=== PATIENT | female | born 1945 | race Caucasian/White ===

== ENCOUNTER → 2018-01-14 09:46 | Outpatient (CLI) | payer MEDICARE, SELFPAY ==
--- NOTE | 2018-01-16 07:41 | P.PFT.S_ITS ---
Pulmonary Function Test Referral & Results Date Patient Seen: 01/14/18 Requesting provider: Laura Dye Results: The spirometry demonstrates an FVC of 2.21 L which is 79% of predicted. The FEV1 was measured at 1.18 L which is 55% of predicted. The FEV1/FVC ratio was 53 which is 69% of predicted. Following the administration of bronchodilator there was a 44% improvement in FEF 25-75%. Lung volumes show an SVC of 2.21 L which is 81% of predicted. No diffusing capacity was performed The maximum voluntary ventilation was severely reduced. Interpretation: This study demonstrates moderately severe obstructive lung disease with only limited evidence of benefit following bronchodilator administration which is based on a 44% improvement in small airway flow (FEF 25- 75%) Lung volumes are minimally reduced
== END ==
PROVIDERS: Family Provider Family Medicine; PCP Family Medicine; Visit Provider Family Medicine
DX: J44.9 Chronic obstructive pulmonary disease, unspecified (principal)
CPT/HCPCS: 94010; 94060; 94729

== ENCOUNTER → 2018-01-19 10:09 | Outpatient (CLI) | payer MEDICARE, SELFPAY | PROVIDERS: Family Provider Family Medicine; PCP Family Medicine; Visit Provider Internal Medicine | DX: L89.013 Pressure ulcer of right elbow, stage 3 (principal) | CPT/HCPCS: 11042; 97607 ==

== ENCOUNTER → 2018-01-28 10:17 | Outpatient (CLI) | payer MEDICARE, SELFPAY | PROVIDERS: Family Provider Family Medicine; PCP Family Medicine; Visit Provider Internal Medicine | DX: L89.013 Pressure ulcer of right elbow, stage 3 (principal); F01.50 Vascular dementia, unspecified severity, without behavioral disturbance, psychotic disturbance, mood disturbance, and anxiety | CPT/HCPCS: 11042; 99212 ==

== ENCOUNTER → 2018-02-02 15:41 | Outpatient (CLI) | payer MEDICARE, SELFPAY | PROVIDERS: Family Provider Family Medicine; PCP Family Medicine; Visit Provider Internal Medicine | DX: L89.013 Pressure ulcer of right elbow, stage 3 (principal) | CPT/HCPCS: 11042 ==

== ENCOUNTER → 2018-02-09 10:27 | Outpatient (CLI) | payer MEDICARE, SELFPAY ==
--- NOTE | 2018-02-09 | OV.WND_ITS ---
Progress Note Details Patient Name: Gail Rosado Patient Number: [id number] PatientPatientDate: 02/09/2018 Clinician: Jaymie Romero Physician / Service Porter: Willard Munguia SUBJECTIVE Chief Complaint This information was obtained from the chart Non-healing wound to right elbow Allergies penicillin HPI This information was obtained from the patient 02/09/18. Seen by Dr. Munguia. The patient does not report pain or drainage associated with the chronic right elbow pressure ulcer since her last visit. 02/02/18. Seen by Dr. Munguia. The patient does not report pain or drainage associated with the chronic right elbow pressure ulcer since her last visit and she tolerate NPWT without difficulty. 01/28/18. Seen by Dr. Munguia. There is no report of acute issues regarding the chronic right elbow pressure ulcer over the past week and her wound vac stopped working on Friday and was removed. Also, the patient suffers from vascular dementia and relies on her family to help manage the wound vac. 01/19/18. Seen by Dr. Munguia. The patient does not report pain or drainage associated with the chronic right elbow pressure ulcer since her last visit. 01/12/18. Seen by Dr. Munguia. There is no report of acute issues regarding the chronic right elbow pressure ulcer over the past week and we'd help NPWT at the last visit at the patient's request. 01/05/18. Seen by Dr. Munguia. There is no report of acute issues regarding the chronic right elbow pressure ulcer over the past week however the patient's asking if we can defer negative pressure wound therapy due to it being cumbersome. 12/29/2017. Seen by Dr. Munguia. The patient tolerated her negative pressure wound VAC that is treating the chronic right elbow pressure ulcer and there are no reported acute issues today. Of note, the patient's suffers from frontal dementia and is not able offer history herself. 12/22/17. Seen by Dr. Munguia. The patient nor her son who is with her today report any significant changes associated with the chronic right elbow pressure ulcer since her last visit. 12/15/17. Seen by Dr. Munguia. Seen by Dr. Munguia. The patient does not report pain or drainage associated with the chronic right elbow pressure ulcer since her last visit and her daughter is accompanying her today due to the patient's advanced vascular dementia. 12/08/17. Seen by Dr. Munguia. The patient does not report pain or drainage associated with the chronic right elbow pressure ulcer since her last visit and her spouse is accompanying her today due to the patient's advanced vascular dementia. 12/01/17. Seen by Dr. Munguia. The patient does not report pain or drainage associated with the chronic right elbow pressure ulcer since her last visit and her daughter is accompanying her today due to the patient's advanced vascular dementia. 11/24/17. Seen by Dr. Munguia. The patient is a poor historian and her son is with her today and does not report any acute changes regarding the right elbow pressure ulcer since her last visit. There appears to be some lack of compliance in terms of offloading the elbow as well as home health adhering to the orders that were sent last week in terms of managing dressings. Of note, the patient suffers from vascular dementia and requires considerable assistance in regards to wound management. 11/17/17. Seen by Dr. Munguia. The patient does not report pain or drainage associated with the chronic right elbow pressure ulcer since her last visit and her daughter states they've been offloading the site as much as possible. 11/10/17. Seen by Last Javed PA-C. The patient's daughter reports that derma-saver no longer makes an elbow protector. She and the patient's son have had little success getting her to offload her pressure ulcer of the right elbow. 11/03/17. Seen by Last Javed PA-C. This patient is new to our clinic and presents with an ulcer to her right elbow that has been present for at least several weeks according to her son who is present. The patient has vascular dementia and is not a reliable historian. The son states that the patient leans on that elbow when seated, which is a behavior they do not think they can change. The patient's diet is apparently rich in protein, per the son's report though due to her dementia she is now having swallow difficulties ans she is not complying with the orders for thickened liquids. Past Medical History This information was obtained from the patient Patient has a medical history of: Breast Cancer Vascular Dementia CVA Hyperlipidemia Vaginal prolapse Chronic Obstructive Pulmonary Disease (COPD) Aspiration Raynaud's Disease Alcohol abuse Complaints and Symptoms This information was obtained from the patient Patient complains of: General Notes: I have reviewed and concur with the Review of Systems and Past Family Social History documents completed by the clinician, I have reviewed and concur with the Wound Assessment document completed by the clinician Integumentary (Hair/Skin/Nails): Open Sore Prior Wound History: Drainage Psychiatric: Memory Loss Patient denies complaints or symptoms related to: Cardiovascular (Central): Irregular heart beat Constitutional Symptoms (General Health): Chills, Fever Ear/Nose/Mouth/Throat: Hearing Loss / Aid Hematologic/Lymphatic: Bleeding / Clotting Disorders, Bleeding Tendency Neurological: Paralysis Prior Wound History: Pain Respiratory: Oxygen Use OBJECTIVE Constitutional Vital signs reviewed and noted. Frail appearing. Height/Length: 62 in (157.48 cm ), Weight: 129.4 lbs (58.82 kgs), BMI: 23.7, Temperature: 98.7 ?F (37.06 ?C), Pulse: 67 bpm , Respiratory Rate: 20 breaths/min, Blood Pressure: 116/65 mmHg, Pulse Oximetry: 96 %. Respiratory: No respiratory distress. Even respirations and without use of accessory muscles.. Integumentary (Hair, Skin) No periwound erythema, warmth, or significant drainage. No periwound rashes appreciated or noted otherwise.. Refer to appropriate clinician wound documentation for this visit; right elbow ulcer extends to subcut with base covered with pink granulation; much smaller than on previous review. Wound #1 Right Elbow is a chronic Stage 3 Pressure Injury Pressure Ulcer and has received a status of Not Healed. Subsequent wound encounter measurements are 0.2cm length x 0.4cm width x 0.2cm depth, with an area of 0.08 sq cm and a volume of 0.016 cubic cm. No tunneling has been noted. No sinus tract has been noted. No undermining has been noted. There is a scant amount of sero-sanguineous drainage noted which has no odor. The patient reports a wound pain of level 0/10. The wound margin is attached. Wound bed has No epithelialization, No eschar, Yes slough, No granulation. The periwound skin texture is normal. The periwound skin moisture is normal. The periwound skin color is normal. The temperature of the periwound skin is WNL. Periwound skin does not exhibit signs or symptoms of infection. Local Pulse is Palpable. ASSESSMENT Active Problems ICD-10 (Encounter Diagnosis) L89.013 - Pressure ulcer of right elbow, stage 3 PROCEDURES Wound #1 Wound #1 (Pressure Ulcer) is located on the right elbow. A skin/subcutaneous tissue level surgical debridement with a total area debrided of 0.08 sq cm was performed by Willard Munguia MD. Subcutaneous was removed along with devitalized tissue: slough. The following instrument(s) were used: curette. Pain control was achieved using 4% Lido. A time out was conducted prior to the start of the procedure. A minimal amount of bleeding was controlled with n/a. The procedure was tolerated well with a pain level of 0 throughout and a pain level of 0 following the procedure. Post Debridement Measurements: 0.2cm length x 0.4cm width x 0.3cm depth; with an area of 0.08 sq cm and a volume of 0.024 cubic cm; Additional Information Muscle fascia or bone removed and sent to pathology?: No PLAN Wound Orders: Wound #1 Right Elbow Anesthetic Topical Xylocaine to wound bed. - In clinic only. Cleanser Cleanse Wound: - Normal saline. May Shower. - If using cast sleeve. Dressings Primary dressing: - Bordered foam Change Dressing: - Every other day Off-Loading Keep weight off: - Right elbow. Keep floated on pillow as much as possible. May order long dermasaver arm sleeve, and can cut it if sleeve appears too large. Additional Orders: Follow-Up Appointments Return Appointment: - - One week . Other information: If you develop fever, chills, increased pain, drainage, redness or swelling please call our office. If after hours, respond to the ER. Should you experience any significant changes in your wound(s) or have any questions regarding your home care instructions please contact the wound center @ [phone]. If after hours, contact your primary care physician or go to the hospital emergency room. Scribing Attestation I attest, as the nurse, that I scribed these orders for the physician. I've reviewed the clinician's documentation and agree with the evaluation and plan as written. In addition, the patient's ulcer demonstrates evidence of non-viable devitalized tissue which will continue to benefit from sharp debridement to help promote granulation and expedite healing. Electronic Signature(s) Signed By: Date: Willard Munguia MD 02/10/2018 10:10:58 Willard Munguia MD 02/10/2018 10:10:58 Entered By: Willard Munguia on 02/09/2018 13:40:27
== END ==
PROVIDERS: Family Provider Family Medicine; PCP Family Medicine; Visit Provider Internal Medicine
DX: L89.013 Pressure ulcer of right elbow, stage 3 (principal)
CPT/HCPCS: 11042

== ENCOUNTER → 2018-02-10 10:33 | Outpatient (CLI) | payer MEDICARE, SELFPAY ==
[2018-02-10 11:29] LABS: Add Manual Diff / Slide Review NO; Basophils Percent Auto 0.3 % (0-2); Eosinophils Percent Auto 2.9 % (2-4); Hematocrit 40.7 % (36-46); Hemoglobin 13.6 g/dL (12.0-16.0); Lymphocytes Percent Auto 32.2 % (25-40); Mean Corpuscular HGB Conc 33.4 % (30-36); Mean Corpuscular Hemoglobin 30.1 PG (26-34); Mean Corpuscular Volume 90.2 fL (80-100); Monocytes Percent Auto 6.3 % (3-14); Neutrophils Absolute Auto 4400 /uL (3000-5900); Neutrophils Percent Auto 58.3 % (50-75); Platelet Count 199 X10^3/uL (150-400); Red Blood Cell Count 4.52 X10^6/uL (4.0-5.2); Red Cell Distribution Width 14.9 % (11.6-14.8); White Blood Cell Count 7.6 X10^3/uL (4.5-11.0)
[2018-02-10 11:45] LABS: Alanine Aminotransferase 51 IU/L (9-52); Albumin 4.3 g/dL (3.5-5.0); Albumin Globulin Ratio 1.3 (1.0-2.8); Alkaline Phosphatase 69 U/L (38-126); Aspartate Aminotransferase 40 IU/L (14-36); BUN Creatinine Ratio 33.3 (6-22); Bilirubin Total 0.6 mg/dL (0.2-1.3); Blood Urea Nitrogen 20 mg/dL (7-17); Calcium 9.5 mg/dL (8.4-10.2); Carbon Dioxide 30 mmol/L (22-32); Chloride 103 mmol/L (98-107); Cholesterol 156 mg/dL (140-199); Estimated Glomerular Filt Rate > 60.0 mL/min (>60); Globulin 3.4 g/dL (1.7-4.1); Glucose 100 mg/dL (80-110); HDL Cholesterol 39 mg/dL (40-60); HEMOLYSIS < 15 (0-50); LDL Cholesterol Calculated 90 mg/dL (<100); Potassium 4.4 mmol/L (3.4-5.1); Sodium 144 mmol/L (137-145); Total Protein 7.7 g/dL (6.3-8.2); Triglycerides 133 mg/dL (35-150)
[2018-02-10 12:52] LABS: Folate > 20.0 ng/mL (2.76-20.0); Vitamin B12 313 pg/mL (239-931)
== END ==
PROVIDERS: Family Provider Family Medicine; PCP Family Medicine; Visit Provider Family Medicine
DX: Z86.73 Personal history of transient ischemic attack (TIA), and cerebral infarction without residual deficits (principal); J44.9 Chronic obstructive pulmonary disease, unspecified; E78.5 Hyperlipidemia, unspecified
CPT/HCPCS: 36415; 80053; 80061; 82607; 82746; 85025

== ENCOUNTER → 2018-02-16 10:08 | Outpatient (CLI) | payer MEDICARE, SELFPAY ==
--- NOTE | 2018-02-16 | OV.WND_ITS ---
Progress Note Details Patient Name: Gail Rosado Patient Number: [id number] PatientPatientDate: 02/16/2018 Clinician: Krystle Patel Clinician Cosigner: Jaymie Romero Physician / System Designer: Willard Munguia SUBJECTIVE Chief Complaint This information was obtained from the chart Non-healing wound to right elbow Allergies penicillin HPI This information was obtained from the patient 02/16/18. Seen by Dr. Munguia. The patient does not report pain or drainage associated with the chronic right elbow pressure ulcer since her last visit 02/09/18. Seen by Dr. Munguia. The patient does not report pain or drainage associated with the chronic right elbow pressure ulcer since her last visit. 02/02/18. Seen by Dr. Munguia. The patient does not report pain or drainage associated with the chronic right elbow pressure ulcer since her last visit and she tolerate NPWT without difficulty. 01/28/18. Seen by Dr. Munguia. There is no report of acute issues regarding the chronic right elbow pressure ulcer over the past week and her wound vac stopped working on Friday and was removed. Also, the patient suffers from vascular dementia and relies on her family to help manage the wound vac. 01/19/18. Seen by Dr. Munguia. The patient does not report pain or drainage associated with the chronic right elbow pressure ulcer since her last visit. 01/12/18. Seen by Dr. Munguia. There is no report of acute issues regarding the chronic right elbow pressure ulcer over the past week and we'd help NPWT at the last visit at the patient's request. 01/05/18. Seen by Dr. Munguia. There is no report of acute issues regarding the chronic right elbow pressure ulcer over the past week however the patient's asking if we can defer negative pressure wound therapy due to it being cumbersome. 12/29/2017. Seen by Dr. Munguia. The patient tolerated her negative pressure wound VAC that is treating the chronic right elbow pressure ulcer and there are no reported acute issues today. Of note, the patient's suffers from frontal dementia and is not able offer history herself. 12/22/17. Seen by Dr. Munguia. The patient nor her son who is with her today report any significant changes associated with the chronic right elbow pressure ulcer since her last visit. 12/15/17. Seen by Dr. Munguia. Seen by Dr. Munguia. The patient does not report pain or drainage associated with the chronic right elbow pressure ulcer since her last visit and her daughter is accompanying her today due to the patient's advanced vascular dementia. 12/08/17. Seen by Dr. Munguia. The patient does not report pain or drainage associated with the chronic right elbow pressure ulcer since her last visit and her spouse is accompanying her today due to the patient's advanced vascular dementia. 12/01/17. Seen by Dr. Munguia. The patient does not report pain or drainage associated with the chronic right elbow pressure ulcer since her last visit and her daughter is accompanying her today due to the patient's advanced vascular dementia. 11/24/17. Seen by Dr. Munguia. The patient is a poor historian and her son is with her today and does not report any acute changes regarding the right elbow pressure ulcer since her last visit. There appears to be some lack of compliance in terms of offloading the elbow as well as home health adhering to the orders that were sent last week in terms of managing dressings. Of note, the patient suffers from vascular dementia and requires considerable assistance in regards to wound management. 11/17/17. Seen by Dr. Munguia. The patient does not report pain or drainage associated with the chronic right elbow pressure ulcer since her last visit and her daughter states they've been offloading the site as much as possible. 11/10/17. Seen by Last Javed PA-C. The patient's daughter reports that derma-saver no longer makes an elbow protector. She and the patient's son have had little success getting her to offload her pressure ulcer of the right elbow. 11/03/17. Seen by Last Javed PA-C. This patient is new to our clinic and presents with an ulcer to her right elbow that has been present for at least several weeks according to her son who is present. The patient has vascular dementia and is not a reliable historian. The son states that the patient leans on that elbow when seated, which is a behavior they do not think they can change. The patient's diet is apparently rich in protein, per the son's report though due to her dementia she is now having swallow difficulties ans she is not complying with the orders for thickened liquids. Past Medical History This information was obtained from the patient Patient has a medical history of: Breast Cancer Vascular Dementia CVA Hyperlipidemia Vaginal prolapse Chronic Obstructive Pulmonary Disease (COPD) Aspiration Raynaud's Disease Alcohol abuse Complaints and Symptoms This information was obtained from the patient Patient complains of: General Notes: I have reviewed and concur with the Review of Systems and Past Family Social History documents completed by the clinician, I have reviewed and concur with the Wound Assessment document completed by the clinician Integumentary (Hair/Skin/Nails): Open Sore Prior Wound History: Drainage Psychiatric: Memory Loss Patient denies complaints or symptoms related to: Cardiovascular (Central): Irregular heart beat Constitutional Symptoms (General Health): Chills, Fever Ear/Nose/Mouth/Throat: Hearing Loss / Aid Hematologic/Lymphatic: Bleeding / Clotting Disorders, Bleeding Tendency Neurological: Paralysis Prior Wound History: Pain Respiratory: Oxygen Use OBJECTIVE Constitutional Vital signs reviewed and noted. Frail appearing. Height/Length: 62 in (157.48 cm ), Weight: 128.3 lbs (58.32 kgs), BMI: 23.5, Temperature: 98.5 ?F (36.94 ?C), Pulse: 64 bpm , Respiratory Rate: 20 breaths/min, Blood Pressure: 129/74 mmHg, Pulse Oximetry: 96 %. Respiratory: No respiratory distress. Even respirations and without use of accessory muscles.. Integumentary (Hair, Skin) No periwound erythema, warmth, or significant drainage. No periwound rashes appreciated or noted otherwise.. Refer to appropriate clinician wound documentation for this visit; right elbow ulcer extends to dermis and is nearly healed. Wound #1 Right Elbow is a chronic Stage 3 Pressure Injury Pressure Ulcer and has received a status of Not Healed. Subsequent wound encounter measurements are 0.2cm length x 0.1cm width x 0.1cm depth, with an area of 0.02 sq cm and a volume of 0.002 cubic cm. No tunneling has been noted. No sinus tract has been noted. No undermining has been noted. There is a scant amount of sero-sanguineous drainage noted which has no odor. The patient reports a wound pain of level 0/10. The wound margin is attached. Wound bed has Yes epithelialization, No eschar, Yes slough, No granulation. The periwound skin texture is normal. The periwound skin moisture is normal. The periwound skin color is normal. The temperature of the periwound skin is WNL. Periwound skin does not exhibit signs or symptoms of infection. Local Pulse is Palpable. Neurological: Cranial nerves grossly intact with symmetric function normal by informal observation.. ASSESSMENT Active Problems ICD-10 (Encounter Diagnosis) L89.013 - Pressure ulcer of right elbow, stage 3 PROCEDURES Wound #1 Wound #1 (Pressure Ulcer) is located on the right elbow. A non-selective mechanical debridement with a total area debrided of 0.01 sq cm was performed by Willard Munguia MD. Non-viable tissue was removed.The procedure was tolerated well with a pain level of 0 throughout and a pain level of 0 following the procedure. Post Debridement Measurements: 0.1cm length x 0.1cm width x 0.1cm depth; with an area of 0.01 sq cm and a volume of 0.001 cubic cm; General Notes: Drainage removed. PLAN Wound Orders: Wound #1 Right Elbow Anesthetic Topical Xylocaine to wound bed. - In clinic only. Cleanser Cleanse Wound: - Normal saline. May Shower. - If using cast sleeve. Dressings Primary dressing: - Bordered foam Change Dressing: - Every other day Off-Loading Keep weight off: - Right elbow. Keep floated on pillow as much as possible. May order long dermasaver arm sleeve, and can cut it if sleeve appears too large. Additional Orders: Follow-Up Appointments Return Appointment: - - Two weeks. Other information: If you develop fever, chills, increased pain, drainage, redness or swelling please call our office. If after hours, respond to the ER. Should you experience any significant changes in your wound(s) or have any questions regarding your home care instructions please contact the wound center @ [phone]. If after hours, contact your primary care physician or go to the hospital emergency room. Scribing Attestation I attest, as the nurse, that I scribed these orders for the physician. I've reviewed the clinician's documentation and agree with the evaluation and plan as written. Electronic Signature(s) Signed By: Date: Willard Munguia MD 02/16/2018 14:41:04 Entered By: Willard Munguia on 02/16/2018 12:08:24
== END ==
PROVIDERS: Family Provider Family Medicine; PCP Family Medicine; Visit Provider Internal Medicine
DX: L89.013 Pressure ulcer of right elbow, stage 3 (principal)
CPT/HCPCS: 99212

== ENCOUNTER → 2018-02-18 11:36 | Outpatient (CLI) | payer MEDICARE, SELFPAY ==
--- NOTE | 2018-02-18 11:40 | DI.CT.S_ITS ---
PROCEDURE: CT CHEST WO CON INDICATIONS: Follow up pulmonary nodules. TECHNIQUE: Noncontrast 2.0-2.5 mm thick sections acquired from the pulmonary apices to the posterior costophrenic angles. 7 mm thick coronal and sagittal MIP reformats were then acquired. A low radiation dose technique was utilized. COMPARISON: [facility], CT, THORAX WITHOUT CONTRAST, 08/06/2017, 11:39. [facility], CT, THORAX WITHOUT CONTRAST, 04/10/2017, 13:54. FINDINGS: Image quality: Diagnostic, given the low radiation dose technique. Lungs and pleura: There is redemonstration of upper lobe centrilobular emphysema as well as scattered interstitial disease and scarring/atelectasis. No acute consolidation. No pleural effusion or pneumothorax. Multiple bilateral subcentimeter pulmonary nodules are again noted, as depicted on the montage image, including 5 mm nodules in the subpleural left lung base on image 111 series 3, a pair of subcentimeter nodule seen in the right lung base on image 107 series 3. None of these appear to be significantly changed accounting for slice registration artifact. 5 mm nodule seen in the posterior right lower lobe on image 100 is slightly more conspicuous and increased in density although this could be due to slice registration artifact. Recommend particular attention on followup studies. Mediastinum: Heart size is normal. Coronary artery calcifications are present. No pericardial effusion. No mediastinal adenopathy by size criteria. Thoracic aorta and central pulmonary arteries are normal in size. Esophagus is normal in caliber. No hiatal hernia. Bones and chest wall: No suspicious bony lesions. No vertebral body compression fractures. No axillary or supraclavicular adenopathy by size criteria. Thyroid gland unremarkable. Abdomen: Nonobstructive right renal calculi. IMPRESSION: Overall, continuing stable appearance of multiple bilateral subcentimeter pulmonary nodules dating back to 04/10/17. Recommend continued surveillance in one year in January [address] to document more definitive long-term stability Fleischner Society criteria for SOLID lung nodule followup. Nodule size (mm)Low-risk patientHigh-risk patient<6 (single or multiple)No routine followup.Optional CT at 12 months. 6-8 (single or multiple)CT at 6-12 months, then optional CT at 18-24 mo.CT at 6-12 months, then CT at 18-24 months. >8 (single)CT at 3 months, PET-CT, or biopsy. Same as for low-risk pts. >8 (multiple)CT at 3-6 months, then optional CT at 18-24 mo.CT at 3-6 months, then CT at 18-24 months. Fleischner Society criteria for SUB-SOLID lung nodule followup. Solitary pure ground-glass nodules<6 mm (ground glass or part solid)No followup needed. 6 mm or larger (ground glass)CT at 6-12 months to confirm persistence, then CT every 2 years until 5 years.6 mm or larger (part solid)CT at 3-6 months to confirm persistence, then annual CT until 5 years if unchanged and solid component remains <6 mm. Multiple sub-solid nodules<6 mmCT at 3-6 months, then CT consider at 2 & 4 years for high risk patients. [address] at 3-6 months. Subsequent management based on most suspicious lesions. Recommendations do not apply to lung cancer screening, patients with immunosuppression, or patients with known primary cancer. Dictated by: Ousmane Conley M.D. on 02/18/2018 at 11:56 Approved by: Ousmane Conley M.D. on 02/18/2018 at 13:26
== END ==
PROVIDERS: Family Provider Family Medicine; PCP Family Medicine; Visit Provider Family Medicine
DX: R91.8 Other nonspecific abnormal finding of lung field (principal)
CPT/HCPCS: 71250

== ENCOUNTER → 2018-03-02 11:15 | Outpatient (CLI) | payer MEDICARE, SELFPAY ==
--- NOTE | 2018-03-02 | OV.WND_ITS ---
Progress Note Details Patient Name: Gail Rosado Patient Number: [id number] PatientPatientDate: 03/02/2018 Clinician: Deanna Zhu Physician / Meat Packer: Willard Munguia SUBJECTIVE Chief Complaint This information was obtained from the chart Non-healing wound to right elbow Allergies penicillin HPI This information was obtained from the patient 03/02/18. Seen by Dr. Munguia. The patient does not report pain or drainage associated with the chronic right elbow pressure ulcer since her last visit. 02/16/18. Seen by Dr. Munguia. The patient does not report pain or drainage associated with the chronic right elbow pressure ulcer since her last visit 02/09/18. Seen by Dr. Munguia. The patient does not report pain or drainage associated with the chronic right elbow pressure ulcer since her last visit. 02/02/18. Seen by Dr. Munguia. The patient does not report pain or drainage associated with the chronic right elbow pressure ulcer since her last visit and she tolerate NPWT without difficulty. 01/28/18. Seen by Dr. Munguia. There is no report of acute issues regarding the chronic right elbow pressure ulcer over the past week and her wound vac stopped working on Friday and was removed. Also, the patient suffers from vascular dementia and relies on her family to help manage the wound vac. 01/19/18. Seen by Dr. Munguia. The patient does not report pain or drainage associated with the chronic right elbow pressure ulcer since her last visit. 01/12/18. Seen by Dr. Munguia. There is no report of acute issues regarding the chronic right elbow pressure ulcer over the past week and we'd help NPWT at the last visit at the patient's request. 01/05/18. Seen by Dr. Munguia. There is no report of acute issues regarding the chronic right elbow pressure ulcer over the past week however the patient's asking if we can defer negative pressure wound therapy due to it being cumbersome. 12/29/2017. Seen by Dr. Munguia. The patient tolerated her negative pressure wound VAC that is treating the chronic right elbow pressure ulcer and there are no reported acute issues today. Of note, the patient's suffers from frontal dementia and is not able offer history herself. 12/22/17. Seen by Dr. Munguia. The patient nor her son who is with her today report any significant changes associated with the chronic right elbow pressure ulcer since her last visit. 12/15/17. Seen by Dr. Munguia. Seen by Dr. Munguia. The patient does not report pain or drainage associated with the chronic right elbow pressure ulcer since her last visit and her daughter is accompanying her today due to the patient's advanced vascular dementia. 12/08/17. Seen by Dr. Munguia. The patient does not report pain or drainage associated with the chronic right elbow pressure ulcer since her last visit and her spouse is accompanying her today due to the patient's advanced vascular dementia. 12/01/17. Seen by Dr. Munguia. The patient does not report pain or drainage associated with the chronic right elbow pressure ulcer since her last visit and her daughter is accompanying her today due to the patient's advanced vascular dementia. 11/24/17. Seen by Dr. Munguia. The patient is a poor historian and her son is with her today and does not report any acute changes regarding the right elbow pressure ulcer since her last visit. There appears to be some lack of compliance in terms of offloading the elbow as well as home health adhering to the orders that were sent last week in terms of managing dressings. Of note, the patient suffers from vascular dementia and requires considerable assistance in regards to wound management. 11/17/17. Seen by Dr. Munguia. The patient does not report pain or drainage associated with the chronic right elbow pressure ulcer since her last visit and her daughter states they've been offloading the site as much as possible. 11/10/17. Seen by Last Javed PA-C. The patient's daughter reports that derma-saver no longer makes an elbow protector. She and the patient's son have had little success getting her to offload her pressure ulcer of the right elbow. 11/03/17. Seen by Last Javed PA-C. This patient is new to our clinic and presents with an ulcer to her right elbow that has been present for at least several weeks according to her son who is present. The patient has vascular dementia and is not a reliable historian. The son states that the patient leans on that elbow when seated, which is a behavior they do not think they can change. The patient's diet is apparently rich in protein, per the son's report though due to her dementia she is now having swallow difficulties ans she is not complying with the orders for thickened liquids. Past Medical History This information was obtained from the patient Patient has a medical history of: Breast Cancer Vascular Dementia CVA Hyperlipidemia Vaginal prolapse Chronic Obstructive Pulmonary Disease (COPD) Aspiration Raynaud's Disease Alcohol abuse Complaints and Symptoms This information was obtained from the patient Patient complains of: General Notes: I have reviewed and concur with the Review of Systems and Past Family Social History documents completed by the clinician, I have reviewed and concur with the Wound Assessment document completed by the clinician Integumentary (Hair/Skin/Nails): Open Sore Prior Wound History: Drainage Psychiatric: Memory Loss Patient denies complaints or symptoms related to: Cardiovascular (Central): Irregular heart beat Constitutional Symptoms (General Health): Chills, Fever Ear/Nose/Mouth/Throat: Hearing Loss / Aid Hematologic/Lymphatic: Bleeding / Clotting Disorders, Bleeding Tendency Neurological: Paralysis Prior Wound History: Pain Respiratory: Oxygen Use OBJECTIVE Constitutional Vital signs reviewed and noted. Well developed. Alert. Clean appearing.. Height/ Length: 62 in (157.48 cm), Weight: 128.3 lbs (58.32 kgs), BMI: 23.5, Temperature: 98.0 ?F ( 36.67 ?C), Pulse: 63 bpm, Respiratory Rate: 18 breaths/min, Blood Pressure: 114/69 mmHg, Pulse Oximetry: 96 %. Ears, Nose, Mouth, and Throat: No clinically significant hearing loss on informal examination. Integumentary (Hair, Skin) Refer to appropriate clinician wound documentation for this visit.. Wound #1 Right Elbow is a chronic Stage 3 Pressure Injury Pressure Ulcer and has received an outcome of Healed - no new wound(s). Subsequent wound encounter measurements are 0cm length x 0cm width x 0cm depth, with an area of 0 sq cm and a volume of 0 cubic cm. No tunneling has been noted. No sinus tract has been noted. No undermining has been noted. There was no drainage noted. The patient reports a wound pain of level 0/10. The wound margin is attached. Wound bed has Yes epithelialization, No eschar, Yes slough, No granulation. The periwound skin texture is normal. The periwound skin moisture is normal. The periwound skin color is normal. The temperature of the periwound skin is WNL. Periwound skin does not exhibit signs or symptoms of infection. Local Pulse is Palpable. ASSESSMENT Active Problems ICD-10 (Encounter Diagnosis) L89.013 - Pressure ulcer of right elbow, stage 3 PLAN Wound Orders: Wound #1 Right Elbow Anesthetic Topical Xylocaine to wound bed. - In clinic only. Cleanser Cleanse Wound: - Normal saline. May Shower. - If using cast sleeve. Dressings Primary dressing: - Keep covered for 1 week. Border foam. Change Dressing: - Change dressing everyday for 1 week. Off-Loading Keep weight off: - Right elbow. Keep floated on pillow as much as possible. May order long dermasaver arm sleeve, and can cut it if sleeve appears too large. Additional Orders: Follow-Up Appointments Other information: If you develop fever, chills, increased pain, drainage, redness or swelling please call our office. If after hours, respond to the ER. Should you experience any significant changes in your wound(s) or have any questions regarding your home care instructions please contact the wound center @ [phone]. If after hours, contact your primary care physician or go to the hospital emergency room. Discharge from Outpatient Services. - Wound healed. Scribing Attestation I attest, as the nurse, that I scribed these orders for the physician. I've reviewed the clinician's documentation and agree with the evaluation and plan as written. In addition the patient's last remiaining complex wound is now healed. The patient is invited to return to our clinic for treatment of any future complex wounds. Post wound care and strategies to avoid recurrences were discussed. Electronic Signature(s) Signed By: Date: Willard Munguia MD 03/03/2018 09:04:29 Entered By: Willard Munguia on 03/02/2018 11:54:16
== END ==
PROVIDERS: Family Provider Family Medicine; PCP Family Medicine; Visit Provider Internal Medicine
DX: L89.013 Pressure ulcer of right elbow, stage 3 (principal)
CPT/HCPCS: 99213

== ENCOUNTER → 2018-05-08 10:59 | Outpatient (CLI) | payer MEDICARE, SELFPAY ==
[2018-05-08 12:11] LABS: Add Manual Diff / Slide Review NO; Basophils Percent Auto 0.2 % (0-2); Eosinophils Percent Auto 2.4 % (2-4); Hematocrit 39.4 % (36-46); Hemoglobin 13.3 g/dL (12.0-16.0); Lymphocytes Percent Auto 32.6 % (25-40); Mean Corpuscular HGB Conc 33.8 % (30-36); Mean Corpuscular Hemoglobin 30.8 PG (26-34); Mean Corpuscular Volume 91.3 fL (80-100); Monocytes Percent Auto 6.1 % (3-14); Neutrophils Absolute Auto 4100 /uL (3000-5900); Neutrophils Percent Auto 58.7 % (50-75); Platelet Count 203 X10^3/uL (150-400); Red Blood Cell Count 4.31 X10^6/uL (4.0-5.2)
[2018-05-08 12:29] LABS: Alanine Aminotransferase 41 IU/L (9-52); Albumin 4.2 g/dL (3.5-5.0); Albumin Globulin Ratio 1.3 (1.0-2.8); Alkaline Phosphatase 66 U/L (38-126); Aspartate Aminotransferase 33 IU/L (14-36); BUN Creatinine Ratio 28.6 (6-22); Bilirubin Total 0.6 mg/dL (0.2-1.3); Blood Urea Nitrogen 20 mg/dL (7-17); Calcium 9.4 mg/dL (8.4-10.2); Carbon Dioxide 28 mmol/L (22-32); Chloride 106 mmol/L (98-107); Estimated Glomerular Filt Rate > 60.0 mL/min (>60); Globulin 3.2 g/dL (1.7-4.1); Glucose 90 mg/dL (80-110); HEMOLYSIS < 15 (0-50); Potassium 4.1 mmol/L (3.4-5.1); Sodium 145 mmol/L (137-145); Total Protein 7.4 g/dL (6.3-8.2)
[2018-05-08 13:05] LABS: TSH w/ Reflex to FT4 0.81 uIU/mL (0.47-4.68)
[2018-05-08 13:32] LABS: Folate > 20.0 ng/mL (2.76-20.0); Vitamin B12 341 pg/mL (239-931)
== END ==
PROVIDERS: Family Provider Family Medicine; PCP Family Medicine; Visit Provider Family Medicine
DX: E53.8 Deficiency of other specified B group vitamins (principal); J44.9 Chronic obstructive pulmonary disease, unspecified; R79.89 Other specified abnormal findings of blood chemistry
CPT/HCPCS: 36415; 80053; 82607; 82746; 84443; 85025

== ENCOUNTER 2018-06-11 11:44 | Emergency (ER) | payer MEDICARE, SELFPAY ==
[2018-06-11 11:56] VITALS: BP 117/71; PULSE 54; RESP 16; TEMP 35.9; O2SAT 97; BMI 25.0
[2018-06-11 12:35] VITALS: BP 128/52; PULSE 58; RESP 16; TEMP 35.9; O2SAT 98
[2018-06-11 13:37] VITALS: BP 115/70; PULSE 63; RESP 16; TEMP 36.6; O2SAT 100
--- NOTE | 2018-06-11 13:49 | PC.NURSE ---
hx of bladder suspension 5 weeks ago, daughter noted something bulging. periarea, incision site, open, wound around the area pale, no active bleeding noted. pt denies any abdominal or carlos area discomfort with palpation. denies fever and vomiting.
--- NOTE | 2018-07-19 07:39 | ED_ITS ---
HPI - Female Genitourinary General Chief complaint: Urogenital-Female Stated complaint: SURGERY 10 DAYS AGO,BLEEDING Time Seen by Provider: 06/11/18 13:00 Source: patient and family Mode of arrival: ambulatory Limitations: no limitations History of Present Illness HPI Narrative: Patient complains of bleeding from her surgical site after having a vaginal prolapse repaired ten days ago. She denies any new trauma to the area. patient denies any fevers; no abdominal pain. No drainage of any other kind from the surgical site. Patient has a follow-up appointment with her surgeon on June 25. She reports mild pain, but states that mainly she is concerned about the bleeding. Onset (ago): day(s) ( One) Location: perineum Severity: mild Severity scale (1-10): 2 Quality: Aching Duration: constant Relieving factors: none Exacerbating factors: none Related Data Home Medications Medication Instructions Recorded Confirmed [estrogen cream] #0 10/14/17 05/08/18 aspirin 81 mg chewable tablet 81 mg PO DAILY 02/10/18 05/08/18 PNV,calcium 56-[id number]-[id number] acid 1 tab PO DAILY 06/11/18 06/11/18 [PrePlus] Previous Rx's Medication Instructions Recorded atorvastatin 40 mg tablet 40 mg PO HS #30 tab 02/10/18 tiotropium bromide 18 mcg capsule 18 mcg INHALATION DAILY #30 05/08/18 with inhalation device inhalation Allergies Allergy/AdvReac Type Severity Reaction Status Date / Time Penicillins [PENICILLINS] Allergy Intermediate I SWELL Verified 06/11/18 11:56 UP. Review of Systems Review of Systems All systems reviewed & are unremarkable except as noted in HPI and below Constitutional Denies chills, Denies fever(s), Denies lethargy and Denies weakness Eyes Denies change in vision, Denies eye discharge, Denies irritation and Denies loss of vision ENT Ears, Nose, Mouth, and Throat: Denies change in voice, Denies neck pain and Denies sore throat Cardiovascular Denies chest pain, Denies irregular heart rhythm, Denies lightheadedness, Denies palpitations, Denies dyspnea, Denies dyspnea on exertion and Denies orthopnea Respiratory Denies cough, Denies dyspnea, Denies dyspnea on exertion and Denies wheezing Gastrointestinal Gastrointestinal: Denies abdominal pain, Denies change in bowel habits, Denies diarrhea, Denies nausea and Denies vomiting Genitourinary Denies hematuria, Denies flank pain, Denies urinary incontinence and Denies urinary urgency Comments: bleeding from surgical site Musculoskeletal Denies neck pain Integumentary/Breasts Denies pruritus, Denies erythema, Denies rash and Denies wounds Neurologic Denies confusion, Denies loss of vision and Denies weakness Psychiatric Denies anxiety, Denies confusion, Denies depression, Denies homicidal ideation and Denies suicidal ideation Endocrine Denies palpitations Hematologic/Lymphatic Denies easy bruising Allergic/Immunologic Denies wheezing [facility] Medical History Proximal humerus fracture (Resolved) Prolapse of vaginal wall (Chronic 02/24/17) Alcohol abuse (Resolved 03/24/17) Hyperlipidemia (Chronic 03/24/17) Multiple pulmonary nodules (Chronic 07/31/17) COPD (chronic obstructive pulmonary disease) (Chronic) Raynaud's syndrome (Chronic) Aspiration pneumonia (Resolved) Breast cancer (Resolved 2007) Stroke (Resolved 2004) Surgical History Anesthesia (Resolved) History of lumpectomy of right breast (Resolved 2007) History of vaginal surgery (Resolved 2009) History of vaginal surgery (Resolved ~2000) Status post hysterectomy (Resolved 2012) Family History Father Heart disease Mother Heart disease Social History marital status: household members: spouse lives independently: Yes occupational status: other (retired) Smoking Status: Current every day smoker alcohol intake: current substance use type: does not use Exam Initial Vital Signs Initial Vital Signs: Vital Signs Temperature 96.7 F L 06/11/18 11:56 Pulse Rate 54 L 06/11/18 11:56 Respiratory Rate 16 06/11/18 11:56 Blood Pressure 117/71 06/11/18 11:56 Pulse Oximetry 97 06/11/18 11:56 Const General: cooperative and well developed Nutritional Appearance: well nourished Orientation: alert, awake, oriented x3 and not confused HENMT Head: normocephalic and atraumatic Ears: external ears normal Nose: external nose normal and No nasal discharge Face and sinus: face symmetric Mouth: oral mucosae normal and moist mucous membranes Teeth and gingiva: dentition normal Eyes General: appearance normal, both eyes and all related structures Eyelids: eyelids normal Conjunctivae: conjunctivae normal Sclera: sclerae normal Pupils: PERRL EOM: EOM intact bilaterally Neck Neck: normal visual inspection, trachea midline, No lymphadenopathy, No midline deformity and No JVD Lymphatic: No lymphedema Chest Chest: normal inspection of the chest Resp Effort & Inspection: normal respiratory effort, able to speak in complete sentences, no respiratory distress and no use of accessory muscles Auscultation: clear to auscultation bilaterally, no rales, no rhonchi and no wheezes Cardio Rate: regular rate Rhythm: regular rhythm Heart Sounds: no click, no gallops, no murmurs and no rubs Pulses: normal peripheral pulses GI Inspection: non-distended Palpation: soft, no hepatosplenomegaly, No guarding, No pulsatile mass and No tender Other: Patient has a perineal incision site which appears clean and non erythematous, with no discharge; however, the external sutures are noted to have broken down, with dehiscence of the wound. Deep sutures are noted to be intact. Granulation tissue is noted within the wound. No purulent drainage or active bleeding noted. Vaginal introitus appears normal. There is no discharge noted to be coming from the vagina. Remainder of genital structures appear normal. Anus appears normal with the exception of a very small hemorrhoid. Back/Spine/Pelvis Back: No CVA tenderness Cervical Spine: cervical ROM normal and No pain with cervical ROM Thoracic/Lumbar Spine: thoracic and lumbar spine normal to inspection Skin General: no rashes or lesions noted, No jaundice and No petechiae Neuro General: alert, oriented x3, gait normal and no focal motor deficits Speech: speech normal Extrem General: full ROM, no clubbing, cyanosis or edema, no pedal edema and no calf tenderness Psych Appearance: well kempt Mental Status: mental status grossly normal Attitude: cooperative Thought Content: normal and suicidality Judgment: judgment good Course Course Narrative: Patient remained stable throughout her stay in the emergency department. I did discuss with her that her surgical site shows breakdown of the sutures with some wound dehiscence. There is no obvious evidence of infection. Patient has good granulation tissue within dehisced area, such the wound cannot be re-sutured in the emergency department as is. I have encouraged patient to call her surgeon's office to see if she needs to be seen sooner than June 25 to have her evaluated. Otherwise, she should plan to follow up with her doctor's office, as planned. MDM - Female Genitourinary Medical Records Attestation: I reviewed the patient's medical records. Discharge Plan Departure Patient Disposition: Home Clinical Impression: Postoperative wound dehiscence Discharge Date/Time: 06/11/18 14:12 Interventions: ED Discharge Assessment Last Done: 06/11/18 14:12 Instructions: DI for Wound Dehiscence Activity Restrictions/Additional Instructions: The general area appears normal, other than the postoperative wound. The opening to your vagina is normal, as is the surrounding anatomy. The anal area also appears normal with the exception of a small hemorrhoid. The surgical wound between your vagina and the anus does not appear infected, and is not draining, but the stitches on the outside have popped out of the left side of the wound. This is causing some gaping of the wound. You will need to ask your surgeon what if anything should be done about this, as the healing process is too far along for the wound to be restitched as is. At this point in time, there is nothing to be done emergently about the wound. Please call your surgeon's office to find out if you should be seen sooner than June 25 to have your wound checked. Prescriptions: No Action [estrogen cream] Qty: 0 RF: 0 aspirin 81 mg tablet,chewable 81 mg PO DAILY RF: 0 atorvastatin 40 mg tablet 40 mg PO HS Qty: 30 RF: 11 tiotropium bromide [Spiriva with HandiHaler] 18 mcg capsule, w/inhalation device 18 mcg INHALATION DAILY Qty: 30 RF: 2 PNV,calcium 30-vnbm-kcfdh acid [PrePlus] 27 mg iron- 1 mg tablet 1 tab PO DAILY RF: 0 Referrals: Laura Dye DO [Primary Care Provider] -
== END 2018-06-11 14:12 | disposition home or self-care (01) ==
PROVIDERS: Emergency Provider Emergency Medicine; Family Provider Family Medicine; PCP Family Medicine
DX: T81.31XA Disruption of external operation (surgical) wound, not elsewhere classified, initial encounter (principal)
CPT/HCPCS: 99282

== ENCOUNTER → 2018-12-18 10:35 | Outpatient (CLI) | payer MEDICARE, SELFPAY ==
[2018-12-18 12:27] LABS: Add Manual Diff / Slide Review NO; Basophils Absolute Auto 0 /uL (0-100); Basophils Percent Auto 0.2 % (0-2); Eosinophils Absolute Auto 200 /uL (0-450); Eosinophils Percent Auto 2.1 % (2-4); Hematocrit 38.2 % (36-46); Hemoglobin 12.6 g/dL (12.0-16.0); Lymphocytes Absolute Auto 1900 /uL (1100-4500); Mean Corpuscular HGB Conc 33.1 % (30-36); Mean Corpuscular Hemoglobin 30.1 PG (26-34); Mean Corpuscular Volume 90.9 fL (80-100); Monocytes Absolute Auto 500 /uL (0-900); Monocytes Percent Auto 6.2 % (3-14); Neutrophils Absolute Auto 4700 /uL (1500-7000); Neutrophils Percent Auto 64.5 % (50-75); Platelet Count 224 X10^3/uL (150-400); Red Cell Distribution Width 14.9 % (11.6-14.8); White Blood Cell Count 7.2 X10^3/uL (4.5-11.0)
[2018-12-18 12:33] LABS: Appearance Urine UA TURBID; Bilirubin Urine UA NEGATIVE (NEGATIVE); Color Urine UA YELLOW; Glucose Urine UA NEGATIVE (Negative); Ketones Urine UA NEGATIVE (NEGATIVE); Leukocyte Esterase Urine UA TRACE (NEGATIVE); Nitrite Urine UA NEGATIVE (Negative); Occult Blood Urine UA NEGATIVE (Negative); Protein Urine UA NEGATIVE (Negative); Specific Gravity Urine UA >=1.030 (1.000-1.035); Urobilinogen Urine UA 0.2 E.U./dL (0.2)
[2018-12-18 12:49] LABS: Bacteria Urine Many (>30); Calcium Oxalate Crystals Urine Few; Culture Indicated Urine Specimen Cultured; RBC Urine 0-1/HPF (0-5/HPF); Squamous Epithelial Cell Urine 1-5 /HPF (0-5/HPF); WBC Urine 1-5/HPF (0-5/HPF)
[2018-12-18 13:11] LABS: Alanine Aminotransferase 30 IU/L (9-52); Albumin 4.2 g/dL (3.5-5.0); Albumin Globulin Ratio 1.4 (1.0-2.8); Alkaline Phosphatase 66 U/L (38-126); Aspartate Aminotransferase 29 IU/L (14-36); Bilirubin Total 0.4 mg/dL (0.2-1.3); Blood Urea Nitrogen 21 mg/dL (7-17); Calcium 9.9 mg/dL (8.4-10.2); Carbon Dioxide 29 mmol/L (22-32); Chloride 100 mmol/L (98-107); Estimated Glomerular Filt Rate > 60.0 mL/min (>60); Glucose 90 mg/dL (80-110); HEMOLYSIS < 15 (0-50); Potassium 4.3 mmol/L (3.4-5.1); Sodium 139 mmol/L (137-145); Total Protein 7.2 g/dL (6.3-8.2)
[2018-12-18 14:06] LABS: Vitamin D 25 Hydroxy (D3) 26.2 ng/mL (30.0-100.0)
== END ==
PROVIDERS: PCP Family Medicine; Visit Provider Family Medicine
DX: E55.9 Vitamin D deficiency, unspecified (principal); R14.0 Abdominal distension (gaseous); Z87.440 Personal history of urinary (tract) infections
CPT/HCPCS: 36415; 80053; 81001; 82306; 85025; 87077; 87086

== ENCOUNTER 2018-12-21 09:35 | Emergency (ER) | payer MEDICARE, SELFPAY ==
[2018-12-21 10:25] VITALS: BP 139/75; PULSE 78; RESP 13; TEMP 36.6; O2SAT 99
--- NOTE | 2018-12-21 11:02 | ED.FALL ---
HPI - Fall General Chief Complaint: Fall Stated Complaint: fell yesterday pain in back Time Seen by Provider: 12/21/18 11:02 Source: patient and family Mode of arrival: ambulatory Limitations: no limitations History of Present Illness HPI Narrative: Patient is a 73-year-old female who has a history of dementia presenting with her daughter who is the primary historian. Daughter states that she has had a UTI for a month. They had blood work with her PCP 3 days ago she is wanting to know the results of that and the urine culture. Patient appears to be in pain holding her left flank. She states she fell yesterday she is not sure how she fell but she did fall no midline tenderness holding her kidney area. No sign of head trauma she denies hitting her head. MD complaint: fall Related Data Home Medications Medication Instructions Recorded Confirmed [estrogen cream] #0 10/14/17 05/08/18 aspirin 81 mg chewable tablet 81 mg PO DAILY 02/10/18 05/08/18 atorvastatin 40 mg PO BEDTIME 12/21/18 12/21/18 Previous Rx's Medication Instructions Recorded tiotropium bromide 18 mcg capsule 18 mcg INHALATION DAILY #30 05/08/18 with inhalation device inhalation polyethylene glycol 3350 17 17 gram PO DAILY PRN #255 gram 11/02/18 gram/dose oral powder vitamin with calcium 1 tab PO DAILY #90 tab 11/16/18 no.72-iron 27 mg-folic acid 1 mg tablet docusate sodium 100 mg capsule 100 mg PO BID #180 cap 12/18/18 cephalexin 500 mg capsule 500 mg PO TID #30 cap 12/21/18 tramadol 25 mg PO Q6H PRN #7 tab 12/21/18 Allergies Allergy/AdvReac Type Severity Reaction Status Date / Time Penicillins [PENICILLINS] Allergy Intermediate I SWELL Verified 06/11/18 11:56 UP. Review of Systems Review of Systems ROS Unobtainable: All systems reviewed & are unremarkable except as noted in HPI and below Constitutional Denies fever(s) and Reports frequent falls Eyes Denies blurry vision and Denies irritation ENT Ears, Nose, Mouth, and Throat: Denies hearing loss and Denies sore throat Cardiovascular Denies chest pain, Denies syncope, Denies dyspnea and Denies dyspnea on exertion Respiratory Denies cough, Denies dyspnea and Denies dyspnea on exertion Gastrointestinal Gastrointestinal: Denies diarrhea, Denies nausea and Denies vomiting Genitourinary Reports as per HPI Musculoskeletal Reports back pain, Denies muscle weakness, Denies numbness and Denies tingling Integumentary/Breasts Denies pruritus, Denies erythema, Denies rash and Denies wounds Neurologic Denies syncope, Reports frequent falls, Reports memory loss, Denies numbness and Denies tingling Psychiatric Reports memory loss Exam Initial Vital Signs Initial Vital Signs: Vital Signs Temperature 98 F 12/21/18 10:25 Pulse Rate 78 12/21/18 10:25 Respiratory Rate 13 12/21/18 10:25 Blood Pressure 139/75 12/21/18 10:25 Pulse Oximetry 99 12/21/18 10:25 GENERAL: Alert elderly female standing in Room grabbing left HEENT: Head atraumatic,EOMI, pupils reactive, face symmetric, CARDIOVASCULAR: Regular rate and rhythm without murmurs, rubs or gallops. RESPIRATORY: Breath sounds equal bilaterally, no wheezes rales or rhonchi. ABDOMEN: Soft, nontender. Normoactive bowel sounds all 4 quadrants. No guarding or rebound. : A left CVA tenderness BACK: No midline tenderness EXTREMITIES: Normal range of motion, no clubbing or edema. Neurovascularly intact NEUROLOGICAL: Alert and oriented x4.Normal gait and speech. Cranial nerves II through XII grossly intact. family coach strength equal bilaterally ambulating without difficulty SKIN: Warm, dry, no laceration, no petechiae, no rashes or lesions. 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) Hyperlipidemia (Chronic 03/24/17) Multiple pulmonary nodules (Chronic 07/31/17) COPD (chronic obstructive pulmonary disease) (Chronic) Raynaud's syndrome (Chronic) Aspiration pneumonia (Resolved) Breast cancer (Resolved 2007) Stroke (Resolved 2004) Surgical History Anesthesia (Resolved) History of lumpectomy of right breast (Resolved 2007) History of vaginal surgery (Resolved 2009) History of vaginal surgery (Resolved ~2000) History of vaginal surgery (Resolved) Status post hysterectomy (Resolved 2012) Family History Father Heart disease Mother Heart disease Social History marital status: household members: spouse lives independently: Yes occupational status: other Smoking Status: Current every day smoker alcohol intake: current substance use type: does not use Family History Father Heart disease Mother Heart disease Social History marital status: household members: spouse lives independently: Yes occupational status: other Smoking Status: Current every day smoker alcohol intake: current substance use type: does not use Course Orders Ordered: Discontinued Medications Acetaminophen (Tylenol) 975 mg PO NOW ONE Stop: 12/21/18 11:04 Last Admin: 12/21/18 11:32 Dose: 975 mg Ketorolac Tromethamine (Toradol) 15 mg IV NOW ONE Stop: 12/21/18 11:12 Last Admin: 12/21/18 11:32 Dose: 15 mg Vital Signs - 8 hr 12/21/18 10:25 Temperature 98 F Pulse Rate 78 Respiratory Rate 13 Blood Pressure 139/75 Pulse Oximetry 99 MDM - Fall Lab Data Attestation: I reviewed the patient's lab results. Result diagrams: 12/21/18 11:27 12/21/18 11:27 Lab Results 12/21/18 12/21/18 Range/Units 11:27 11:27 WBC 9.1 (4.5-11.0) X10^3/uL RBC 4.46 (4.0-5.2) X10^6/uL Hgb 13.3 (12.0-16.0) g/dL Hct 40.4 (36-46) % MCV 90.7 (80-100) fL MCH 29.8 (26-34) PG MCHC 32.9 (30-36) % RDW 14.9 H (11.6-14.8) % Plt Count 228 (150-400) X10^3/uL Neut % (Auto) 76.4 H (50-75) % Lymph % (Auto) 16.8 L (25-40) % [place] % (Auto) 5.6 (3-14) % Eos % (Auto) 0.7 L (2-4) % Baso % (Auto) 0.5 (0-2) % Neut # (Auto) 7000 (8729-0870) /uL Lymph # (Auto) 1500 (6789-5379) /uL [place] # (Auto) 500 (0-900) /uL Eos # (Auto) 100 (0-450) /uL Baso # (Auto) 0 (0-100) /uL Sodium 139 (137-145) mmol/L Potassium 4.0 (3.4-5.1) mmol/L Chloride 101 (98-107) mmol/L Carbon Dioxide 26 (22-32) mmol/L BUN 16 (7-17) mg/dL Creatinine 0.60 (0.52-1.04) mg/dL Estimated GFR > 60.0 (>60) mL/min BUN/Creatinine Ratio 26.7 H (6-22) Glucose 111 H (80-110) mg/dL Calcium 10.0 (8.4-10.2) mg/dL Imaging Data Rib x-ray: Radiologist's impression: PROCEDURE: XR RIBS LT MIN 3V W CXR1V INDICATIONS: fall left sided pain TECHNIQUE: 2 views of the left ribs were acquired, along with a single view chest. COMPARISON: [facility], , CHEST 1 VIEW, 10/06/2017, 13:15. FINDINGS: Surgical changes and devices: None. Bones and chest wall: No fractures or dislocations. No suspicious bony lesions. Overlying soft tissues appear unremarkable. Lungs and pleura: No pleural effusions or pneumothorax. Lungs appear clear. Mediastinum: Mediastinal contours appear normal. Heart size is normal. IMPRESSION: No displaced rib fracture. Dictated by: Eliana Low MD, PhD on 12/21/2018 at 11:33 [facility] Narrative Medical decision making narrative: Daughter is quite demanding she was out in the hallway multiple times looking at the monitor she was asked to return to her room due HIPPA and patient privacy. Threatened to leave multiple times however finally agreed to workup and helping her mother. Blood work from 3 days ago similar to today's. Her urine did grow 90,000 CFU/mL Aerococcus urinae. She was previously on Bactrim. Not completely convinced that this is a UTI or kidney infection. However she may need a longer on Bactrim. She does not appear septic or toxic. Her pain is slightly better after IV Toradol. Daughter is wanting to leave and wants no further workup. Patient is given prescription for Bactrim follow up with PCP Discharge Plan Departure Patient Disposition: Home Clinical Impression: Acute UTI Discharge Date/Time: 12/21/18 12:28 Interventions: ED Discharge Assessment Last Done: 12/21/18 12:26 Instructions: DI for Urinary Tract Infection (UTI) Activity Restrictions/Additional Instructions: *You have been diagnosed with UTI *What to do: Blood work is reassuring today no rib fracture pain is likely from her kidney. *Continue to take medications as directed Bactrim 1 pill twice daily for 10 days-please speak with her primary care provider if longer is required Tramadol half tablet every 6 hours only if needed for severe pain *Follow up with your primary care provider in 2-3 days *Return to ER if you should have increasing pain fever, worsening confusion increasing falls or any new, worsening or concerning symptoms CONTROLLED SUBSTANCE DISCHARGE (Narcotoic/benzodiazepine/Flexeril/Phenergan) 1. You have been prescribed narcotic medications, it does have acetaminophen/Tylenol/paracetamol in it so do not take extra Tylenol or Tylenol containing products 2. Please understand that we cannot provide further refills of narcotics, benzodiazepines or controlled substances through the ED and her pain management will need to be through your provider. 3. While on these medications you cannot drive or operate heavy machinery. 4. You cannot sign legal documents or perform any duties such as this. 5. As long as you're taking opiate pain medications he should also be taking a stool softener such as Colace, Dulcolax, MiraLAX or prune juice, to help avoid constipation. Prescriptions: New tramadol 50 mg tablet 25 mg PO Q6H PRN (Reason: pain) Qty: 7 RF: 0 No Action [estrogen cream] Qty: 0 RF: 0 polyethylene glycol 3350 [Miralax] 17 gram/dose powder 17 gram PO DAILY PRN (Reason: constipation) Qty: 255 RF: 0 PNV,calcium [id number] acid 27 mg iron- 1 mg tablet 1 tab PO DAILY Qty: 90 RF: 3 cephalexin [Keflex] 500 mg capsule 500 mg PO TID Qty: 30 RF: 0 aspirin 81 mg tablet,chewable 81 mg PO DAILY RF: 0 docusate sodium 100 mg capsule 100 mg PO BID Qty: 180 RF: 3 tiotropium bromide [Spiriva with HandiHaler] 18 mcg capsule, w/inhalation device 18 mcg INHALATION DAILY Qty: 30 RF: 2 atorvastatin 40 mg tablet 40 mg PO BEDTIME RF: 0 Referrals: Laura Dye DO [Primary Care Provider] -
[2018-12-21] MEDS: ACETAMINOPHEN 325 MG TABLET 975 MG PO (11:32)
[2018-12-21] MEDS: KETOROLAC 60 MG/2 ML VIAL 15 MG IV (11:32)
[2018-12-21 11:42] LABS: Add Manual Diff / Slide Review NO; Basophils Absolute Auto 0 /uL (0-100); Basophils Percent Auto 0.5 % (0-2); Eosinophils Absolute Auto 100 /uL (0-450); Eosinophils Percent Auto 0.7 % (2-4); Hematocrit 40.4 % (36-46); Hemoglobin 13.3 g/dL (12.0-16.0); Lymphocytes Absolute Auto 1500 /uL (1100-4500); Lymphocytes Percent Auto 16.8 % (25-40); Mean Corpuscular HGB Conc 32.9 % (30-36); Mean Corpuscular Hemoglobin 29.8 PG (26-34); Mean Corpuscular Volume 90.7 fL (80-100); Monocytes Absolute Auto 500 /uL (0-900); Monocytes Percent Auto 5.6 % (3-14); Neutrophils Absolute Auto 7000 /uL (1500-7000); Neutrophils Percent Auto 76.4 % (50-75); Platelet Count 228 X10^3/uL (150-400); Red Blood Cell Count 4.46 X10^6/uL (4.0-5.2); Red Cell Distribution Width 14.9 % (11.6-14.8); White Blood Cell Count 9.1 X10^3/uL (4.5-11.0)
[2018-12-21 11:52] LABS: BUN Creatinine Ratio 26.7 (6-22); Blood Urea Nitrogen 16 mg/dL (7-17); Carbon Dioxide 26 mmol/L (22-32); Chloride 101 mmol/L (98-107); Estimated Glomerular Filt Rate > 60.0 mL/min (>60); Glucose 111 mg/dL (80-110); HEMOLYSIS < 15 (0-50); Sodium 139 mmol/L (137-145)
[2018-12-21 12:15] VITALS: BP 106/67; PULSE 76; RESP 17; O2SAT 96
[2018-12-21 12:26] VITALS: BP 134/69; PULSE 72; RESP 18; O2SAT 98
== END 2018-12-21 12:28 | disposition home or self-care (01) ==
PROVIDERS: Emergency Provider Emergency Medicine; PCP Family Medicine
DX: N39.0 Urinary tract infection, site not specified (principal); R10.9 Unspecified abdominal pain; W19.XXXA Unspecified fall, initial encounter; Z91.81 History of falling
CPT/HCPCS: 36415; 36591; 71101; 80048; 85025; 96374; 99282; 99284; J1885

== ENCOUNTER → 2019-01-21 14:51 | Outpatient (CLI) | payer MEDICARE, SELFPAY | PROVIDERS: PCP Family Medicine; Visit Provider Family Medicine | DX: R39.9 Unspecified symptoms and signs involving the genitourinary system (principal) | CPT/HCPCS: 87077; 87086; 87186 ==

== ENCOUNTER → 2019-02-15 13:47 | Outpatient (CLI) | payer MEDICARE, SELFPAY ==
--- NOTE | 2019-02-15 13:50 | DI.US.S_ITS ---
PROCEDURE: US ABDOMEN COMPLETE INDICATIONS: ABD DISTENTION, H/O ALCOHOLISM TECHNIQUE: Real-time scanning was performed of the abdominal and retroperitoneal organs, with image documentation. COMPARISON: [facility], CT, CT CHEST WO CON, 02/18/2018, 11:44. [facility], US, US RENAL COMPLETE, 01/01/2018, 12:38. FINDINGS: Liver: Liver is normal in size and homogeneous in echotexture. Gallbladder: There are gallstones, however no gallbladder wall thickening or pericholecystic fluid. No sonographic Gar's sign Biliary ducts: Intrahepatic bile ducts are non-dilated. Extrahepatic bile duct caliber measures 7-8 mm. Normal is 6-7 mm or less in diameter, or 10 mm or less post-cholecystectomy. Pancreas: Visualized portions of the pancreas are sonographically normal. Spleen: Spleen is normal in size and homogeneous in echotexture. Kidneys: Kidneys are normal in size and echotexture. Right kidney measures 9.6 cm long; left kidney measures 11.2 cm long. No hydronephrosis or nephrolithiasis. No solid masses. There is a 1.6 x 1.4 x 1.4 cm right renal cystic lesion, which could be monitored with ultrasound for long-term stability if clinically desired. Right renal cortical thinning measuring 0.6 cm. Left renal cortex measures 1.0 cm Aorta: Distal common aortic aneurysm measuring 4.4 cm diameter. There is intraluminal thrombus. Iliacs: Right common iliac artery measures 2.2 cm diameter. Left common iliac artery measures 2.1 cm in diameter IVC: Intrahepatic inferior vena cava is patent. Miscellaneous: No free abdominal fluid. 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 Recommend further evaluation with dedicated CT. Also, surgical consultation and management recommended. Discussed with Dr. Dye on 02/15/19 Cholelithiasis however no other sonographic criteria for acute cholecystitis. Please correlate clinically and with LFTs. Presumed right renal cyst. Right renal atrophy and cortical thinning. Dictated by: Ousmane Conley M.D. on 02/15/2019 at 15:02 Approved by: Ousmane Conley M.D. on 02/15/2019 at 15:39
== END ==
PROVIDERS: PCP Family Medicine; Visit Provider Family Medicine
DX: R14.0 Abdominal distension (gaseous) (principal); I71.4 Abdominal aortic aneurysm, without rupture; I72.3 Aneurysm of iliac artery; K80.20 Calculus of gallbladder without cholecystitis without obstruction
CPT/HCPCS: 76700

== ENCOUNTER → 2019-04-12 12:06 | Outpatient (CLI) | payer MEDICARE, SELFPAY ==
--- NOTE | 2019-04-12 | DI.MG.S_ITS ---
BILATERAL DIGITAL SCREENING MAMMOGRAM 3D/2D WITH CAD POST LUMPECTOMY: 04/12/2019 CLINICAL: Routine screening. Personal history of right breast cancer. Family history of breast cancer. Comparison is made to exams dated: 03/19/2017 mammogram - [facility], 05/12/2013 mammogram, 10/29/2011 mammogram, 12/04/2012 mammogram, 10/01/2010 mammogram, and 09/28/2009 mammogram - [facility]. There are scattered fibroglandular elements in both breasts. Current study was also evaluated with a Computer Aided Detection (CAD) system. There are benign post operative findings in the right breast. No significant masses, calcifications, or other findings are seen in either breast. There has been no significant interval change. IMPRESSION: There is no mammographic evidence of malignancy. A 1 year screening mammogram is recommended. This exam was interpreted at Station ID: [id number]. NOTE: For mammograms, a report in lay terms will be sent to the patient. Approximately 15% of breast malignancies will not be visualized mammographically. In the management of a palpable breast mass, a negative mammogram must not discourage biopsy of a clinically suspicious lesion. Electronically Signed By: Andrey viramontes/jacob:04/12/2019 18:34:55 letter sent: Normal Exam ACR BI-RADS Category 2: Benign Finding(s) 3342F
--- NOTE | 2019-04-12 12:45 | DI.CT.S_ITS ---
PROCEDURE: CT CHEST WO CON INDICATIONS: pulmonary nodules, smoker TECHNIQUE: Noncontrast 2.0-2.5 mm thick sections acquired from the pulmonary apices to the posterior costophrenic angles. 7 mm thick axial MIP and 5 mm coronal and sagittal reformats were then acquired. A low radiation dose technique was utilized. COMPARISON: [facility], CT, CT CHEST WO CON, 02/18/2018, 11:44. FINDINGS: Image quality: Diagnostic, given the low radiation dose technique. Lungs and pleura: Centrilobular pulmonary emphysema is severe. Multiple prior nodules have been documented within the lung parenchyma, small in size. The current study identifies some of these nodules, new nodules, and an area of new alveolar consolidation suggestive of pneumonia at the right lung base posteriorly. At the right apex mild focal alveolar airspace disease with a 3 mm nodule is lateral border has developed, not previously present 02/18/18 (series 3 image 48). More inferiorly on the right focal airspace disease with alveolar opacification has developed posteriorly at the right upper lobe and also along the anterolateral border of the upper lobe (series 3 image 65). More inferiorly, image 78, an ovoid 3 x 6 mm nodule has developed, adjacent to a point of vascular branching. This was not previously present. More inferiorly at the anterior border of the major fissure on the left the 2 x 3 mm nodule slightly distorts the fissure (image 100) and 2 sub-solid foci of airspace disease at the lateral border of the right major fissure can be seen. At the right lower lobe mid chest level on the right, image 157, a previously present small nodule appears to have slightly increased in size measuring up to 6 mm. This appears mildly spiculated. More inferiorly bilaterally posteriorly are 2 small nodules not previously present on image 164. A small nodule at the posterior medial left lower lobe seen on image 177 has not changed. This measures approximately 1.5 x 2.5 mm. At the posterior medial lung bases seen on image 204 small bilateral pulmonary nodules slightly larger on the right than the left are present, the nodule on the right does not appear to have enlarged but that on the left has. These measure 5 and 4 mm respectively, seen on image 204. Right lower lobe posterolateral alveolar infiltration has developed in an area of prior indistinctly marginated alveolar infiltration, now seen on series 3 image 221. A nodule at the posterolateral left lung base at that same axial level is again seen as are several additional bilateral peripheral pulmonary nodules without belt changer time. Mediastinum: Heart size is normal. No pericardial effusion. No mediastinal adenopathy by size criteria. Thoracic aorta and central pulmonary arteries are normal in size. Esophagus is normal in caliber. No hiatal hernia. Bones and chest wall: No suspicious bony lesions. No vertebral body compression fractures. No axillary or supraclavicular adenopathy by size criteria. Thyroid gland appears normal where well seen. Abdomen: Visualized upper abdomen solid organs and bowel loops appear normal in the absence of contrast. IMPRESSION: 1. Severe COPD. 2. Within the lung parenchyma and areas of prior pulmonary nodules seen bilaterally 02/18/18 a number of the nodules can again be seen, the majority of which have not changed and none of which have improved in size. There has been slight if any growth in these nodules as discussed in detail by level through the chest in the body of the report above. 3. New pulmonary nodules are present, as noted above. Overall, it is considered statistically most likely that these are inflammatory in origin given the small changes over time, and none of these nodules appear accessible for safe/adequate biopsy. 4. Focal airspace disease posterolateral inferior right lower lobe. Fleischner Society criteria for SOLID lung nodule followup. Nodule size (mm)Low-risk patientHigh-risk patient<6 (single or multiple)No routine followup.Optional CT at 12 months. 6-8 (single or multiple)CT at 6-12 months, then optional CT at 18-24 mo.CT at 6-12 months, then CT at 18-24 months. >8 (single)CT at 3 months, PET-CT, or biopsy. Same as for low-risk pts. >8 (multiple)CT at 3-6 months, then optional CT at 18-24 mo.CT at 3-6 months, then CT at 18-24 months. Fleischner Society criteria for SUB-SOLID lung nodule followup. Solitary pure ground-glass nodules<6 mm (ground glass or part solid)No followup needed. 6 mm or larger (ground glass)CT at 6-12 months to confirm persistence, then CT every 2 years until 5 years.6 mm or larger (part solid)CT at 3-6 months to confirm persistence, then annual CT until 5 years if unchanged and solid component remains <6 mm. Multiple sub-solid nodules<6 mmCT at 3-6 months, then CT consider at 2 & 4 years for high risk patients. [address] at 3-6 months. Subsequent management based on most suspicious lesions. Recommendations do not apply to lung cancer screening, patients with immunosuppression, or patients with known primary cancer. Dictated by: Alpesh Churchill M.D. on 04/12/2019 at 15:19 Approved by: Alpesh Churchill M.D. on 04/12/2019 at 15:38
[2019-04-12 13:55] LABS: Appearance Urine UA CLOUDY; Bilirubin Urine UA NEGATIVE (NEGATIVE); Color Urine UA YELLOW; Glucose Urine UA NEGATIVE (Negative); Ketones Urine UA NEGATIVE (NEGATIVE); Leukocyte Esterase Urine UA 2+ (NEGATIVE); Nitrite Urine UA POSITIVE (Negative); Occult Blood Urine UA 3+ (Negative); Protein Urine UA 1+ (Negative); Specific Gravity Urine UA 1.025 (1.000-1.035); Urobilinogen Urine UA 0.2 E.U./dL (0.2)
[2019-04-12 14:01] LABS: Bacteria Urine Many (>30); Culture Indicated Urine Cult Not Indicated; RBC Urine 30-100/HPF (0-5/HPF); Squamous Epithelial Cell Urine 5-10 /HPF (0-5/HPF); WBC Urine 10-30/HPF (0-5/HPF)
[2019-04-12 14:48] LABS: Vitamin B12 520 pg/mL (239-931)
[2019-04-12 15:19] LABS: Vitamin D 25 Hydroxy (D3) 55.2 ng/mL (30.0-100.0)
== END ==
PROVIDERS: PCP Family Medicine; Visit Provider Family Medicine
DX: Z12.31 Encounter for screening mammogram for malignant neoplasm of breast (principal); Z85.3 Personal history of malignant neoplasm of breast; Z80.3 Family history of malignant neoplasm of breast; M81.0 Age-related osteoporosis without current pathological fracture; Z78.0 Asymptomatic menopausal state; R91.8 Other nonspecific abnormal finding of lung field; J44.9 Chronic obstructive pulmonary disease, unspecified; E53.8 Deficiency of other specified B group vitamins; E55.9 Vitamin D deficiency, unspecified; R31.9 Hematuria, unspecified; R30.0 Dysuria; F17.200 Nicotine dependence, unspecified, uncomplicated
CPT/HCPCS: 36415; 71250; 77063; 77067; 77080; 81001; 82306; 82607

== ENCOUNTER → 2019-04-13 11:10 | Outpatient (CLI) | payer MEDICARE, SELFPAY | PROVIDERS: PCP Family Medicine; Visit Provider Family Medicine | DX: N39.0 Urinary tract infection, site not specified (principal) | CPT/HCPCS: 87077; 87086; 87186 ==

== ENCOUNTER → 2019-04-16 10:36 | Outpatient (CLI) | payer MEDICARE, SELFPAY | PROVIDERS: PCP Family Medicine; Visit Provider Family Medicine | DX: N39.0 Urinary tract infection, site not specified (principal) | CPT/HCPCS: 87077; 87086; 87186 ==

== ENCOUNTER → 2019-06-17 15:33 | Outpatient (CLI) | payer MEDICARE, SELFPAY ==
--- NOTE | 2019-06-17 15:35 | DI.RAD.S_ITS ---
PROCEDURE: XR CHEST 2V INDICATIONS: cough, low grade fever TECHNIQUE: 2 views of the chest were acquired. COMPARISON: [facility], , CHEST 1 VIEW, 10/06/2017, 13:15. FINDINGS: Surgical changes and devices: Surgical clips project over the right lower lung base. A wire stent projects over the mid upper abdomen. Lungs and pleura: No pleural effusion or pneumothorax. Diffuse bilateral reticular and hazy pulmonary opacities are noted. Hazy opacities are noted to project over the lateral right lung base. There is prominence of pulmonary vasculature bilaterally. Mediastinum: Mediastinal contours are normal. Cardiac silhouette measures at the upper limits of normal in size but is stable to comparison exam of 10/06/17. Bones and chest wall: No suspicious bony abnormalities. Soft tissues appear unremarkable. Deformity of the proximal right humerus correlates with the sequela of the previously identified proximal right humeral fracture seen on exam of 10/06/17. IMPRESSION: Hazy opacities at the lateral right lung base may represent pneumonia versus atelectasis or aspiration in the appropriate clinical setting. Diffuse bilateral reticular pulmonary opacities most consistent with underlying pulmonary edema. Dictated by: Andrey Pa M.D. on 06/17/2019 at 17:12 Approved by: Andrey Pa M.D. on 06/17/2019 at 17:23
[2019-06-17 15:57] LABS: Add Manual Diff / Slide Review NO; Basophils Absolute Auto 100 /uL (0-100); Basophils Percent Auto 0.7 % (0-2); Eosinophils Absolute Auto 0 /uL (0-450); Eosinophils Percent Auto 0.2 % (2-4); Hematocrit 36.8 % (36-46); Hemoglobin 12.3 g/dL (12.0-16.0); Lymphocytes Absolute Auto 2100 /uL (1100-4500); Lymphocytes Percent Auto 13.8 % (25-40); Mean Corpuscular HGB Conc 33.6 % (30-36); Mean Corpuscular Hemoglobin 28.7 PG (26-34); Mean Corpuscular Volume 85.6 fL (80-100); Monocytes Absolute Auto 700 /uL (0-900); Monocytes Percent Auto 4.7 % (3-14); Neutrophils Absolute Auto 12000 /uL (1500-7000); Neutrophils Percent Auto 80.6 % (50-75); Platelet Count 191 X10^3/uL (150-400); Red Cell Distribution Width 16.3 % (11.6-14.8); White Blood Cell Count 14.8 X10^3/uL (4.5-11.0)
[2019-06-17 17:10] LABS: BUN Creatinine Ratio 28.6 (6-22); Blood Urea Nitrogen 20 mg/dL (7-17); Calcium 9.8 mg/dL (8.4-10.2); Carbon Dioxide 26 mmol/L (22-32); Chloride 99 mmol/L (98-107); Estimated Glomerular Filt Rate > 60.0 mL/min (>60); Glucose 125 mg/dL (80-110); HEMOLYSIS < 15 (0-50); Sodium 137 mmol/L (137-145)
== END ==
PROVIDERS: PCP Family Medicine; Visit Provider Hospitalist
DX: R05 Cough (principal)
CPT/HCPCS: 36415; 71046; 80048; 85025

== ENCOUNTER → 2019-06-24 12:01 | Outpatient (CLI) | payer MEDICARE, SELFPAY ==
[2019-06-24 12:42] LABS: Add Manual Diff / Slide Review NO; Basophils Absolute Auto 0 /uL (0-100); Basophils Percent Auto 0.2 % (0-2); Eosinophils Absolute Auto 200 /uL (0-450); Eosinophils Percent Auto 2.1 % (2-4); Hematocrit 38.1 % (36-46); Hemoglobin 12.4 g/dL (12.0-16.0); Lymphocytes Absolute Auto 2000 /uL (1100-4500); Lymphocytes Percent Auto 22.7 % (25-40); Mean Corpuscular HGB Conc 32.6 % (30-36); Mean Corpuscular Hemoglobin 28.4 PG (26-34); Mean Corpuscular Volume 87.1 fL (80-100); Monocytes Absolute Auto 600 /uL (0-900); Monocytes Percent Auto 6.5 % (3-14); Neutrophils Absolute Auto 6100 /uL (1500-7000); Neutrophils Percent Auto 68.5 % (50-75); Platelet Count 293 X10^3/uL (150-400); Red Blood Cell Count 4.38 X10^6/uL (4.0-5.2); Red Cell Distribution Width 15.8 % (11.6-14.8)
== END ==
PROVIDERS: PCP Family Medicine; Visit Provider Hospitalist
DX: J40 Bronchitis, not specified as acute or chronic (principal)
CPT/HCPCS: 36415; 85025

== ENCOUNTER → 2019-07-13 08:24 | Outpatient (CLI) | payer MEDICARE, SELFPAY ==
--- NOTE | 2019-07-13 08:27 | DI.RAD.S_ITS ---
PROCEDURE: XR CHEST 2V INDICATIONS: Pneumonia TECHNIQUE: 2 views of the chest were acquired. COMPARISON: [facility], CR, XR CHEST 2V, 06/17/2019, 15:49. FINDINGS: Surgical changes and devices: Vascular stent only partially visualized in the abdomen. Surgical clips project in the right andrew-thorax. Lungs and pleura: Scattered subsegmental atelectasis and/or scarring. No focal consolidation. No pleural effusions or pneumothorax. Mediastinum: Mediastinal contours are normal. Heart size is normal. Bones and chest wall: Chronic deformity of the right humeral head as before. IMPRESSION: Diffuse scarring/atelectasis. No acute consolidation or interval change. Dictated by: Ousmane Conley M.D. on 07/13/2019 at 9:24 Approved by: Ousmane Conley M.D. on 07/13/2019 at 9:34
== END ==
PROVIDERS: PCP Family Medicine; Visit Provider Hospitalist
DX: J18.9 Pneumonia, unspecified organism (principal)
CPT/HCPCS: 71046